=== PATIENT | male | born 1985 | race Caucasian/White ===

== ENCOUNTER 2019-04-13 01:52 | Emergency (ER) | payer MEDICAID ==
[~2019-04-13] VITALS: Ht 175.3 cm; Wt 85.9 kg
[2019-04-13 02:05] VITALS: BP 129/73
--- NOTE | 2019-04-13 02:05 | NUR ---
34 Y/O MALE C/O OF ABDOMINAL PAIN SINCE 219904/12/19; PAIN ORIGINATES IN THE RUQ AND RADIATES TO THE RIGHT SIDE OF THE BACK. ABDOMINAL SOUNDS HEARD THROUGHOUT; PAIN UPON PALPATION. NO REBOUND TENDERNESS NOTED. ERMD MADE AWARE OF STATUS. SIDE RAILSX1. WILL CONTINUE TO MONITOR. PMH:DENIES NKDA RX:DENIES
[2019-04-13] MEDS ORDERED: DICYCLOMINE HCL LIQUID 20 MG, ALUMINUM HYD/MAG/SIMETHICONE 30 ML, LIDOCAINE VISCOUS 2% ... PO ONE ×3 (03:25)
[2019-04-13] MEDS ORDERED: LIDOCAINE VISCOUS 2% 20 ML UDC ONE ×2 (03:27→03:31)
[2019-04-13] MEDS ORDERED: ALUMINUM HYD/MAG/SIMETHICONE 30 ML UDC ONE ×2 (03:28→03:31)
[2019-04-13] MEDS ORDERED: DICYCLOMINE HCL LIQUID 10 MG/5 ML UDC ONE ×2 (03:28→03:32)
--- NOTE | 2019-04-13 03:44 | NUR ---
BLOOD SPECIMEN COLLECTED AND SENT TO LAB.
[2019-04-13 03:50] LABS: BASOPHILS # (AUTO) 0.1 K/uL (0.00-0.22); BASOPHILS % (AUTO) 0.4 % (0.0-2.0); EOSINOPHILS # (AUTO) 0.2 K/uL (0-0.4); EOSINOPHILS % (AUTO) 1.5 % (0.0-4.0); HEMATOCRIT 44.2 % (36-52); HEMOGLOBIN 15.6 g/dL (12.0-18.0); LYMPHOCYTES # (AUTO) 2.4 K/uL (2.0-11.5); LYMPHOCYTES % (AUTO) 17.3 % (20.5-51.1); MEAN CORPUSCULAR HEMOGLOBIN 30 pg (27-31); MEAN CORPUSCULAR HGB CONC 35 g/dL (33-37); MEAN CORPUSCULAR VOLUME 84.8 fL (80-94); NEUTROPHILS # (AUTO) 10.3 K/uL (1.8-7.7); NEUTROPHILS % (AUTO) 73.8 % (42.2-75.2); PLATELET COUNT (AUTO) 272 K/uL (140-450); RED BLOOD CELL COUNT(AUTO) 5.21 MIL/uL (4.20-6.10); RED CELL DISTRIBUTION WIDTH 13.1 % (11.6-13.7)
--- NOTE | 2019-04-13 03:53 | NUR ---
URINE COLLECTED AND SENT TO LAB.
[2019-04-13 03:56] LABS: APPEARANCE,URINE CLOUDY (CLEAR); BILIRUBIN,URINE NEGATIVE (NEGATIVE); BLOOD, URINE TRACE-I (NEGATIVE); COLOR,URINE YELLOW (YELLOW); LEUKOCYTE ESTERASE ,URINE NEGATIVE (NEGATIVE); NITRITE, URINE NEGATIVE (NEGATIVE); UGLUCOSE NEGATIVE (NEGATIVE)
[2019-04-13 04:05] LABS: ALBUMIN 4.2 g/dL (3.4-5.0); ANION GAP 6.5 (8-16); CARBON DIOXIDE 34.4 mmol/L (21-32); CREATININE 1.1 mg/dL (0.6-1.3); POTASSIUM 3.9 mmol/L (3.5-5.1); TOTAL BILIRUBIN 0.5 mg/dL (0.0-1.0)
[2019-04-13 04:13] LABS: COARSE GRANULAR CASTS,URINE 0-5 /LPF (None Seen); RBC,URINE 0-5 /HPF (0-5); WBC,URINE 0-5 /HPF (0-5)
[2019-04-13 07:22] VITALS: BP 128/72
--- NOTE | 2019-04-13 07:22 | NUR ---
Patient discharged with v/s stable. Written and verbal after care instructions given and explained. Patient alert, oriented and verbalized understanding of instructions. Ambulatory with steady gait. All questions addressed prior to discharge. ID band removed. Patient advised to follow up with PMD. Rx of ranitidine given. Patient educated on indication of medication including possible reaction and side effects. Opportunity to ask questions provided and answered.
== END 2019-04-13 07:22 | disposition home or self-care (01) ==
LOC: MED 01:52
DX: R10.13 Epigastric pain (principal)
CPT/HCPCS: 36415; 80053; 81001; 82150; 83690; 85025; 87086; 99283

== ENCOUNTER 2019-07-25 20:04 | Emergency (ER) | payer MEDICAID ==
[~2019-07-25] VITALS: Ht 177.8 cm; Wt 83.9 kg
[2019-07-25 20:18] VITALS: BP 128/80
--- NOTE | 2019-07-25 20:22 | NUR ---
PT AMBULATED TO BED 2 WITH STEADY GAIT
--- NOTE | 2019-07-25 20:25 | NUR ---
PT 34 Y/O MALE BIB SELF FOR C/O R SHOULDER PAIN S/P FALL X 2 HOURS AGO. PT STATES HE WAS WORKING AT HIS HOME AND FELL ON HIS SHOULDER. PT DENIES HITTING HEAD AND LOC. PT NOTED WITH ABRASION IN R SHOULDER. PT STATES UNABLE TO MOVE D/T 7/10 PAIN. CMS INTACT. CAP REFIL <3. PT PULSES STRONG AND EQUAL BILAT. PT DENIES NUMBNESS AND TINGLING OF EXTREMITY. PT DENIES DIFFICULTY BREATHING. VSS. PT BED LOCKED AND IN LOWEST POSTION. MEDHX: NONE ALLERGIES: NKA
[2019-07-25] MEDS ORDERED: KETOROLAC 60 MG/2 ML VIAL IM ONE (20:30)
--- NOTE | 2019-07-25 20:39 | NUR ---
XRAY AT BEDSIDE.
--- NOTE | 2019-07-25 21:00 | NUR ---
R SHOULDER PAIN REDUCED FROM 7/10 PAIN TO 2/10.
[2019-07-25 21:10] VITALS: BP 128/80
--- NOTE | 2019-07-25 21:10 | NUR ---
Patient discharged with v/s stable. Written and verbal after care instructions given and explained. Patient alert, oriented and verbalized understanding of instructions. Ambulatory with steady gait. All questions addressed prior to discharge. ID band removed. Patient advised to follow up with PMD. Rx of NORCO, MOTRIN given. Patient educated on indication of medication including possible reaction and side effects. Opportunity to ask questions provided and answered.
== END 2019-07-25 21:10 | disposition home or self-care (01) ==
LOC: MED 20:04
DX: M25.511 Pain in right shoulder (principal)
CPT/HCPCS: 73030; 96372; 99283; J1885

== ENCOUNTER 2021-04-28 21:08 | Emergency (ER) | payer MEDICAID ==
[~2021-04-28] VITALS: Ht 177.8 cm; Wt 88.5 kg
[2021-04-28 21:29] VITALS: BP 142/85
--- NOTE | 2021-04-28 22:08 | NUR ---
PT AMBULATED TO BED 02.
--- NOTE | 2021-04-28 23:16 | NUR ---
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
[2021-04-28 23:20] LABS: APPEARANCE,URINE CLEAR (CLEAR); BILIRUBIN,URINE NEGATIVE (NEGATIVE); BLOOD, URINE 2+ (NEGATIVE); COLOR,URINE YELLOW (YELLOW); LEUKOCYTE ESTERASE ,URINE NEGATIVE (NEGATIVE); NITRITE, URINE NEGATIVE (NEGATIVE); UGLUCOSE NEGATIVE (NEGATIVE)
[2021-04-28] MEDS: NACL 0.9% 1,000 ML IV SCH (23:20)
[2021-04-28] MEDS: ONDANSETRON 4 MG/2 ML VIAL IVP ONE (23:20)
[2021-04-28] MEDS: MORPHINE SULFATE 2 MG/ML SYR IVP ONE (23:20)
[2021-04-28 23:21] LABS: BASOPHILS # (AUTO) 0.1 K/uL (0.00-0.22); BASOPHILS % (AUTO) 0.7 % (0.0-2.0); EOSINOPHILS # (AUTO) 0.4 K/uL (0-0.4); EOSINOPHILS % (AUTO) 3.7 % (0.0-4.0); HEMATOCRIT 45.6 % (36-52); HEMOGLOBIN 15.6 g/dL (12.0-18.0); LYMPHOCYTES # (AUTO) 2.5 K/uL (2.0-11.5); LYMPHOCYTES % (AUTO) 25.6 % (20.5-51.1); MEAN CORPUSCULAR HEMOGLOBIN 30 pg (27-31); MEAN CORPUSCULAR HGB CONC 34 g/dL (33-37); MEAN CORPUSCULAR VOLUME 88.2 fL (80-94); MONOCYTES # (AUTO) 0.9 K/uL (0.8-1.0); MONOCYTES % (AUTO) 8.9 % (1.7-9.3); NEUTROPHILS # (AUTO) 5.9 K/uL (1.8-7.7); NEUTROPHILS % (AUTO) 61.1 % (42.2-75.2); PLATELET COUNT (AUTO) 271 K/uL (140-450); RED BLOOD CELL COUNT(AUTO) 5.17 MIL/uL (4.20-6.10); RED CELL DISTRIBUTION WIDTH 12.9 % (11.6-13.7); WHITE BLOOD COUNT (AUTO) 9.6 K/uL (4.8-10.8)
--- NOTE | 2021-04-28 23:21 | NUR ---
TAKEN TO CT AT THIS TIME
[2021-04-28 23:45] LABS: WBC,URINE 0-5 /HPF (0-5)
[2021-04-28 23:49] LABS: ANION GAP 13.3 (8-16); CARBON DIOXIDE 26.9 mmol/L (21-32); CREATININE 0.9 mg/dL (0.6-1.3); POTASSIUM 4.2 mmol/L (3.5-5.1)
[2021-04-29 00:08] LABS: ALBUMIN 3.6 g/dL (3.4-5.0); TOTAL BILIRUBIN 0.4 mg/dL (0.0-1.0)
[2021-04-29] MEDS ORDERED: PANT40EC PO (01:03)
--- NOTE | 2021-04-29 01:34 | NUR ---
TROPONIN OBTAINED AND WALKED OVER TO LAB
[2021-04-29 01:36] VITALS: BP 124/81
--- NOTE | 2021-04-29 01:36 | NUR ---
PATIENT CLEARED FOR DISHARGE AT THIS TIME. ADVISED TO FOLLOW UP WITH PCP AND RETURN IF CONDITION WORSENS. NO OTHER COMPLAINTS OR CONECRNS AT THIS TIME FOLLOWING DISHCARGE TEACHING. RX SENT HOME TO PATIENT PHARM
== END 2021-04-29 01:36 | disposition home or self-care (01) ==
LOC: MED 21:08
DX: R10.13 Epigastric pain (principal); R11.2 Nausea with vomiting, unspecified; K21.9 Gastro-esophageal reflux disease without esophagitis; Z79.899 Other long term (current) drug therapy
CPT/HCPCS: 36415; 74176; 76705; 80053; 81001; 83690; 84484; 85025; 93005; 96361; 96374; 96375; 99285; J2270; J2405; Q0092

== ENCOUNTER 2021-10-31 21:13 | Emergency (ER) | payer MEDICAID ==
[~2021-10-31] VITALS: Ht 177.8 cm; Wt 89.8 kg
[~2021-10-31 21:13] MED LIST: PANT40EC PO
[2021-10-31 21:36] VITALS: BP 145/98
--- NOTE | 2021-10-31 21:41 | NUR ---
Patient to lobby.
[2021-10-31] MEDS ORDERED: IBUPROFEN 800 MG TAB PO ONE (22:45)
[2021-10-31] MEDS ORDERED: IBUP-1878 PO (22:46)
[2021-10-31 22:52] VITALS: BP 142/89
--- NOTE | 2021-10-31 22:57 | NUR ---
MD TOMI PAREDES IN CHAIR C
[2021-10-31] MEDS ORDERED: LIDOCAINE MPF 1% 10 MG/ML VIAL INJ ONE (23:00)
[2021-10-31] MEDS ORDERED: HYDROcodone/APAP 5/325 MG 1 TAB TAB PO ONE (23:00)
--- NOTE | 2021-10-31 23:13 | NUR ---
PATIENT MEDICATED PER ORDERS. TOLERATED WELL
--- NOTE | 2021-10-31 23:26 | NUR ---
VERBAL ORDER BY TOMI FOR 2 MORE LIDOCAINE BOTTLES. LIDOCAINE MPF 1% 100MG/10ML. REMOVED AND PLACED AT BEDSIDE FOR PROCEDURE.
--- NOTE | 2021-10-31 23:31 | NUR ---
Patient discharged with v/s stable BY ERMD. Written and verbal after care instructions given and explained. Patient alert, oriented and verbalized understanding of instructions. Ambulatory with steady gait. All questions addressed prior to discharge. ID band removed. Patient advised to follow up with PMD. Rx of IBUPROFEN 800M GPO given. Patient educated on indication of medication including possible reaction and side effects. Opportunity to ask questions provided and answered.
--- NOTE | 2021-10-31 23:31 | NUR ---
The patient's care was reviewed and supervised by Jasmyne Peralta RN.
== END 2021-10-31 23:31 | disposition home or self-care (01) ==
LOC: MED 21:13
DX: S60.111A Contusion of right thumb with damage to nail, initial encounter (principal); X58.XXXA Exposure to other specified factors, initial encounter; Y93.89 Activity, other specified; Y92.89 Other specified places as the place of occurrence of the external cause; Y99.8 Other external cause status
CPT/HCPCS: 11730; 73140; 90471; 90715; 99284; J2001; Q0092

== ENCOUNTER 2022-06-29 23:50 | Emergency (ER) | payer MEDICAID ==
[~2022-06-29] VITALS: Ht 177.8 cm; Wt 88.1 kg
[~2022-06-29 23:50] MED LIST changes: +IBUP-1878 PO
[2022-06-30 00:05] VITALS: BP 137/90
--- NOTE | 2022-06-30 00:08 | NUR ---
TO LOBBY A/W BED AMBULATORY
--- NOTE | 2022-06-30 01:01 | NUR ---
PT TAKEN TO ER BED
--- NOTE | 2022-06-30 01:17 | NUR ---
Beverly seaman in [facility] - 06/30/22 at [address] Sheikh examining patient.
--- NOTE | 2022-06-30 01:17 | NUR ---
Dr. Sheikh examining patient.
[2022-06-30] MEDS ORDERED: KETOROLAC 30 MG/ML VIAL IM ONE (01:25)
[2022-06-30] MEDS ORDERED: FLUORESCEIN OPTH STRIP 1 MG OP ONE (01:35)
[2022-06-30] MEDS ORDERED: TETRACAINE HCL/PF 0.5% OPTH 4 ML BTL OP ONE (01:35)
[2022-06-30] MEDS ORDERED: cefTRIAXone 1,000 MG in LIDOCAINE MPF 1% 2.1 ML IM ONE (02:55)
[2022-06-30] MEDS ORDERED: ACET-8905 PO (02:58)
[2022-06-30] MEDS ORDERED: NAPR-54 PO (02:58)
[2022-06-30] MEDS ORDERED: AMOX1TAB8 PO (02:58)
[2022-06-30] MEDS ORDERED: TOBR5DRO10 RIGHT EYE (02:58)
[2022-06-30] MEDS ORDERED: cefTRIAXone 1,000 MG VIAL ONE (03:01)
[2022-06-30] MEDS ORDERED: LIDOCAINE MPF 1% 5 ML ONE (03:01)
[2022-06-30 03:22] VITALS: BP 128/85
--- NOTE | 2022-06-30 03:22 | NUR ---
Patient discharged with v/s stable. Written and verbal after care instructions given and explained. Patient alert, oriented and verbalized understanding of instructions. Ambulatory with steady gait. All questions addressed prior to discharge. ID band removed. Patient advised to follow up with PMD. Rx of Tobramycin, Naproxen, Amox-clav and Cascade given. Patient educated on indication of medication including possible reaction and side effects. Opportunity to ask questions provided and answered.
== END 2022-06-30 03:22 | disposition home or self-care (01) ==
LOC: MED 23:50
DX: H10.9 Unspecified conjunctivitis (principal); R59.1 Generalized enlarged lymph nodes; K21.9 Gastro-esophageal reflux disease without esophagitis; Z79.899 Other long term (current) drug therapy
CPT/HCPCS: 87070; 96372; 99284; J0696; J1885; J2001

== ENCOUNTER 2022-08-04 19:55 | Emergency (ER) | payer MEDICAID ==
[~2022-08-04] VITALS: Ht 180.3 cm; Wt 87.5 kg
[~2022-08-04 19:55] MED LIST changes: +ACET-8905 PO; +AMOX1TAB8 PO; +NAPR-54 PO; +TOBR5DRO10 RIGHT EYE
[2022-08-04 20:02] VITALS: BP 120/80; PULSE 85; RESP 17; TEMP 97.8; O2SAT 97
--- NOTE | 2022-08-04 20:02 | NUR ---
TO BED AMBULATORY
--- NOTE | 2022-08-04 20:30 | NUR ---
on bed 9, not in distress. on monitor. A/Ox4
[2022-08-04] MEDS ORDERED: KETOROLAC 30 MG/ML VIAL IM ONE (20:40)
[2022-08-04] MEDS ORDERED: LIDOCAINE 5% 1 EA PATCH TP ONE (20:40)
[2022-08-04] MEDS ORDERED: IBUP-2213 PO (21:03)
[2022-08-04] MEDS ORDERED: LID5T TP (21:03)
[2022-08-04] MEDS ORDERED: CYCL-711 PO (21:03)
[2022-08-04 21:24] VITALS: BP 120/80; PULSE 85; RESP 17; TEMP 97.8; O2SAT 97
== END 2022-08-04 21:24 | disposition home or self-care (01) ==
LOC: MED 19:55
DX: S39.012A Strain of muscle, fascia and tendon of lower back, initial encounter (principal); S16.1XXA Strain of muscle, fascia and tendon at neck level, initial encounter; S09.90XA Unspecified injury of head, initial encounter; K21.9 Gastro-esophageal reflux disease without esophagitis; Z79.899 Other long term (current) drug therapy; Z79.1 Long term (current) use of non-steroidal anti-inflammatories (NSAID); Z79.2 Long term (current) use of antibiotics; V89.2XXA Person injured in unspecified motor-vehicle accident, traffic, initial encounter; Y93.89 Activity, other specified; Y92.410 Unspecified street and highway as the place of occurrence of the external cause; Y99.8 Other external cause status
CPT/HCPCS: 70450; 71045; 96372; 99285; J1885

== ENCOUNTER 2023-05-03 23:53 | Emergency (ER) | payer MEDICAID ==
[~2023-05-03] VITALS: Ht 177.8 cm; Wt 88.0 kg
[~2023-05-03 23:53] MED LIST changes: +CYCL-711 PO; +IBUP-2213 PO; +LID5T TP
[2023-05-04 00:15] VITALS: BP 133/84; PULSE 106; RESP 19; TEMP 98.8; O2SAT 98
[2023-05-04] MEDS: ACETAMIN/CODEINE 120/12MG-5ML 5 ML UDC PO ONE (00:57)
[2023-05-04 01:58] LABS: FLU A ANTIGEN negative (NEGATIVE); FLU B ANTIGEN NEGATIVE (NEGATIVE)
[2023-05-04 02:14] VITALS: PULSE 63; RESP 16; O2SAT 98
[2023-05-04] MEDS: ALBUTEROL SULFATE/IPRATROPIU 3 ML SOL IH ONE (02:14)
[2023-05-04] MEDS ORDERED: AZIT250T4 PO (02:26)
[2023-05-04] MEDS ORDERED: ALBU0.0912 IH (02:26)
[2023-05-04] MEDS ORDERED: ROBAC PO (02:26)
[2023-05-04 02:41] VITALS: PULSE 96; RESP 18; O2SAT 99
== END 2023-05-04 02:42 | disposition home or self-care (01) ==
LOC: MED 23:53
DX: J20.9 Acute bronchitis, unspecified (principal); Z20.822 Contact with and (suspected) exposure to COVID-19; K21.9 Gastro-esophageal reflux disease without esophagitis; Z79.899 Other long term (current) drug therapy
CPT/HCPCS: 71045; 93005; 94640; 99285

== ENCOUNTER 2023-09-07 18:02 | Emergency (ER) | payer MEDICAID ==
[~2023-09-07] VITALS: Ht 177.8 cm; Wt 88.0 kg
[~2023-09-07 18:02] MED LIST changes: +ALBU0.0912 IH; +AZIT250T4 PO; +NAPR-337 PO; -NAPR-54 PO; +ROBAC PO
[2023-09-07 18:14] VITALS: BP 131/88; PULSE 78; RESP 18; TEMP 97.9; O2SAT 95
[2023-09-07] MEDS ORDERED: FAMOTIDINE 20 MG/2 ML VIAL IVP ONE (18:30)
[2023-09-07] MEDS ORDERED: ONDANSETRON 4 MG/2 ML VIAL IVP ONE (18:30)
[2023-09-07 18:47] LABS: BASOPHILS # (AUTO) 0.1 K/uL (0.00-0.22); BASOPHILS % (AUTO) 0.5 % (0.0-2.0); EOSINOPHILS # (AUTO) 0.3 K/uL (0-0.4); EOSINOPHILS % (AUTO) 2.3 % (0.0-4.0); HEMATOCRIT 43.7 % (36-52); HEMOGLOBIN 14.9 g/dL (12.0-18.0); LYMPHOCYTES # (AUTO) 2.6 K/uL (2.0-11.5); LYMPHOCYTES % (AUTO) 23.4 % (20.5-51.1); MEAN CORPUSCULAR HEMOGLOBIN 30 pg (27-31); MEAN CORPUSCULAR HGB CONC 34 g/dL (33-37); MEAN CORPUSCULAR VOLUME 87.2 fL (80-94); MONOCYTES # (AUTO) 0.9 K/uL (0.8-1.0); MONOCYTES % (AUTO) 8.5 % (1.7-9.3); NEUTROPHILS # (AUTO) 7.2 K/uL (1.8-7.7); NEUTROPHILS % (AUTO) 65.3 % (42.2-75.2); PLATELET COUNT (AUTO) 227 K/uL (140-450); RED BLOOD CELL COUNT(AUTO) 5.01 MIL/uL (4.20-6.10); RED CELL DISTRIBUTION WIDTH 13.4 % (11.6-13.7)
[2023-09-07 19:02] LABS: ANION GAP 11.3 (8-16); CALCIUM 8.9 mg/dL (8.5-10.1); CARBON DIOXIDE 27.3 mmol/L (21-32); CREATININE 1.1 mg/dL (0.6-1.3); POTASSIUM 3.6 mmol/L (3.5-5.1)
[2023-09-07 19:15] LABS: ALANINE AMINOTRANSFERASE 39 U/L (12-78); ALBUMIN 3.9 g/dL (3.4-5.0); ALKALINE PHOSPHATASE 91 U/L (50-136); ASPARTATE AMINOTRANSFERASE 22 U/L (15-37); BILIRUBIN,DIRECT 0.2 mg/dL (0.0-0.3); LIPASE 21 U/L (16-77); TOTAL BILIRUBIN 0.9 mg/dL (0.0-1.0); TOTAL PROTEIN, SERUM 7.7 g/dL (6.4-8.2)
[2023-09-07] MEDS: FAMOTIDINE 20 MG TAB PO ONE (19:15)
[2023-09-07] MEDS: ALUMINUM HYD/MAG/SIMETHICONE 30 ML UDC PO ONE (19:15)
[2023-09-07] MEDS: ONDANSETRON 4 MG TAB PO ONE (19:15)
[2023-09-07 19:23] VITALS: O2SAT 95
[2023-09-07] MEDS ORDERED: FAMO-90 PO (19:57)
[2023-09-07] MEDS ORDERED: [UNRECOGNIZED DRUG - CODE] PO (19:57)
[2023-09-07 20:02] VITALS: BP 131/88; PULSE 78; RESP 18; TEMP 97.9; O2SAT 95
== END 2023-09-07 20:24 | disposition home or self-care (01) ==
LOC: MED 18:02
DX: R10.13 Epigastric pain (principal); R10.11 Right upper quadrant pain; K21.9 Gastro-esophageal reflux disease without esophagitis; Z79.1 Long term (current) use of non-steroidal anti-inflammatories (NSAID); Z79.2 Long term (current) use of antibiotics; Z79.899 Other long term (current) drug therapy
CPT/HCPCS: 36415; 76705; 80048; 80076; 83690; 84484; 85025; 93005; 99284; Q0092; Q0162